=== PATIENT | female | born 1960 | race Hispanic/Latino ===

== ENCOUNTER 2020-09-04 16:07 | Inpatient (IN) | payer SELFPAY ==
[~2020-09-04] VITALS: Ht 152.4 cm; Wt 61.5 kg
[2020-09-04] MEDS ORDERED: REGADENOSON 0.4 MG/5 ML PF SYG IVP ONE (16:09)
[2020-09-04 16:24] LABS: BASOPHILS % (AUTO) 0.5 % (0.0-5.0); EOSINOPHILS % (AUTO) 0.2 % (0.0-8.0); LYMPHOCYTES % (AUTO) 11.3 % (21.0-51.0); MEAN CORPUSCULAR HEMOGLOBIN 28.5 pg (27.0-33.0); MEAN CORPUSCULAR HGB CONC 34.3 g/dL (32.0-36.0); MEAN CORPUSCULAR VOLUME 83.1 fL (79-99); MONOCYTES % (AUTO) 8.2 % (3.0-13.0); PLATELET COUNT (AUTO) 261 K/uL (130-400); RED BLOOD CELL COUNT(AUTO) 4.45 MIL/uL (4.00-5.50); RED CELL DISTRIBUTION WIDTH 12.3 % (11.0-15.5); WHITE BLOOD COUNT (AUTO) 11.8 K/uL (4.8-10.8)
[2020-09-04 16:37] LABS: APPEARANCE,URINE Clear (CLEAR); BILIRUBIN,URINE Negative (NEGATIVE); COLOR,URINE Yellow (YELLOW); GLUCOSE, URINE (UA) >=1000 mg/dL (NEGATIVE); KETONES,URINE Negative (NEGATIVE); LEUKOCYTE ESTERASE ,URINE Small (NEGATIVE); NITRATE,URINE Negative (NEGATIVE); OCCULT BLOOD,URINE Small (NEGATIVE); PH,URINE 5.5 (5.0-8.0); PROTEIN,URINE Negative (NEGATIVE); UROBILINOGEN,URINE 0.2 mg/dL (0.2-1.0)
[2020-09-04 16:46] LABS: BACTERIA,URINE Few /HPF (None Seen); MUCUS,URINE Few LPF (None Seen); SQUAMOUS EPITHELIAL CELL,UR Few /HPF (0-2)
[2020-09-04] MEDS ORDERED: ACETAMINOPHEN 325 MG TAB ONE ×2 (16:52→23:06)
[2020-09-04 16:53] LABS: ALBUMIN 2.6 g/dL (3.5-5.0); BILIRUBIN,TOTAL 0.7 mg/dL (0.2-1.0); CREATININE 1.2 mg/dL (0.5-1.5); POTASSIUM 3.4 mmol/L (3.5-5.1); TOTAL PROTEIN, SERUM 7.7 g/dL (6.0-8.3)
[2020-09-04 16:54] LABS: ABG BASE EXCESS 1.6 mmol/L (-2.0-3.0); ABG HCO3 25.7 mmol/L (21.0-28.0); ABG OXYGEN SATURATION 94.3 % (95.0-99.0); ABG PCO2 38 mmHg (32-45)
[2020-09-04] MEDS ORDERED: INSULIN HUMULIN R 100 UNIT/ML 3ML ONE (18:22)
[2020-09-04] MEDS ORDERED: CEFTRIAXONE SODIUM 1 GM ONE (18:27)
[2020-09-04] MEDS ORDERED: LIDOCAINE HCL-MPF 1% 2ML VIAL IV PRN (19:30)
[2020-09-04] MEDS ORDERED: ONDANSETRON HCL 4 MG/2 ML VIAL IV PRN (19:30)
[2020-09-04] MEDS ORDERED: LACTULOSE 20 GM/30 ML UDCUP PO PRN (19:30)
[2020-09-04] MEDS: SODIUM CHLORIDE 0.9% 1000ML 1,000 ML IV SCH (19:30)
[2020-09-04] MEDS ORDERED: POTASSIUM CHLORIDE 10% ELIXIR 20 MEQ/15 ML UDCUP PO PRN (19:30)
[2020-09-04] MEDS ORDERED: POTASSIUM CHLORIDE 20 MEQ ERTAB PO PRN (19:30)
[2020-09-04] MEDS ORDERED: POTASSIUM CHLORIDE 10MEQ/100ML 100 ML IV PRN (19:30)
[2020-09-04] MEDS ORDERED: ACETAMINOPHEN 325 MG TAB PO PRN (19:30)
[2020-09-04] MEDS ORDERED: HYDRALAZINE HCL 20 MG/ML VIAL IV PRN (19:30)
[2020-09-04] MEDS: CEFTRIAXONE SODIUM 1 GM IV SCH (19:30)
[2020-09-04 19:39] LABS: HEMOGLOBIN A1C 9.2 % (4.0-6.0)
[2020-09-04 19:45] LABS: CHOLESTEROL 173 mg/dL (<200); HDL CHOLESTEROL 30 mg/dL (35-85); LDL DIRECT 82 mg/dL (0-99); TRIGLYCERIDES 433 mg/dL (30-200)
[2020-09-04] MEDS ORDERED: INSULIN GLARGINE 100 UNITS/ML 10 ML VIAL SQ SCH (21:00)
[2020-09-04] MEDS ORDERED: ATORVASTATIN CALCIUM 20 MG TABLET PO SCH (21:00)
[2020-09-04] MEDS: INSULIN HUMULIN R 100 UNIT/ML 3ML SQ SCH (21:00)
[2020-09-04] MEDS: METOPROLOL TARTRATE 25 MG TAB PO SCH (21:00)
[2020-09-04 21:17] LABS: INR 0.84 (0.85-1.15); PARTIAL THROMBOPLASTIN TIME 24.8 SEC (26.3-35.5); PROTHROMBIN TIME 9.1 SEC (9.6-11.6)
[2020-09-05] MEDS ORDERED: IOHEXOL-350 75 ML VIAL IV ONE (04:51)
[2020-09-05] MEDS: SODIUM CHLORIDE 0.9% 1000ML 1,000 ML IV SCH ×2 (05:51→18:00)
[2020-09-05] MEDS: INSULIN HUMULIN R 100 UNIT/ML 3ML SQ SCH ×4 (07:30→19:55)
[2020-09-05] MEDS: FAMOTIDINE 20MG TAB 20 MG TAB PO SCH (09:00)
[2020-09-05] MEDS: ENOXAPARIN SODIUM 40 MG/0.4 ML SYRINGE SQ SCH (09:00)
[2020-09-05] MEDS ORDERED: ASPIRIN 325 MG TABLET PO SCH (09:00)
[2020-09-05] MEDS: METOPROLOL TARTRATE 25 MG TAB PO SCH ×2 (09:00→19:56)
[2020-09-05] MEDS ORDERED: ENOXAPARIN SODIUM 40 MG/0.4 ML SYRINGE SQ ONE (09:09)
[2020-09-05] MEDS ORDERED: FAMOTIDINE 20MG TAB 20 MG TAB ONE (09:09)
[2020-09-05] MEDS ORDERED: ASPIRIN 81MG TAB.CHEW ONE (09:09)
[2020-09-05] MEDS ORDERED: METOPROLOL TARTRATE 25 MG TAB ONE (09:10)
[2020-09-05] MEDS ORDERED: INSULIN HUMULIN R 100 UNIT/ML 3ML ONE ×2 (09:11→13:22)
[2020-09-05 10:46] LABS: BASOPHILS % (AUTO) 0.6 % (0.0-5.0); EOSINOPHILS % (AUTO) 0.5 % (0.0-8.0); HEMATOCRIT 35.1 % (36-48); LYMPHOCYTES % (AUTO) 18.6 % (21.0-51.0); MEAN CORPUSCULAR HEMOGLOBIN 28.7 pg (27.0-33.0); MEAN CORPUSCULAR HGB CONC 33.3 g/dL (32.0-36.0); MONOCYTES % (AUTO) 5.9 % (3.0-13.0); NEUTROPHILS % (AUTO) 69.8 % (40.0-77.0); PLATELET COUNT (AUTO) 285 K/uL (130-400); RED BLOOD CELL COUNT(AUTO) 4.08 MIL/uL (4.00-5.50); RED CELL DISTRIBUTION WIDTH 12.6 % (11.0-15.5); WHITE BLOOD COUNT (AUTO) 10.8 K/uL (4.8-10.8)
--- NOTE | 2020-09-05 11:30 | NUR ---
MET WITH PATIENT AT BEDSIDE IN ER FOR DC PLANNING PATIENT STATES INDEPENDENT, DRIVE, NO DME, NO PCP, UNINSURED, UNDOCUMENTED LIVES WITH SPOUSE SILVIO, WILL UPDATE FACE SHEET TO CORRECT SPOUSE NAME AND ADD DAUGHTER, WHO WILL PROVIDE TRANSPORT. STATES NO KNOWLEDGE OF LOW COST CLINICS IN AREA. PENDING COMMUNITY RESOURCE PKT, PENDING RX FOR GLUCOMETER/LANCETS /STRIPS Addendum: 09/06/20 at 0823 by ZAHIDA YODER RN CM Amended: Links added.
[2020-09-05 11:34] LABS: ALBUMIN 2.3 g/dL (3.5-5.0); BILIRUBIN,TOTAL 0.7 mg/dL (0.2-1.0); MAGNESIUM 2.3 mg/dL (1.80-2.40); POTASSIUM 3.7 mmol/L (3.5-5.1)
[2020-09-05] MEDS ORDERED: INSULIN GLARGINE 100 UNITS/ML 10 ML VIAL SQ SCH (12:30)
[2020-09-05] MEDS ORDERED: INSULIN HUMULIN R 100 UNIT/ML 3ML SQ SCH (17:00)
[2020-09-05 19:04] VITALS: BP 158/80
[2020-09-05] MEDS: CEFTRIAXONE SODIUM 1 GM IV SCH (19:56)
[2020-09-05] MEDS ORDERED: MORPHINE SULFATE 2 MG/ML 1ML SYG IVP PRN (20:00)
[2020-09-05 23:06] LABS: CREATINE KINASE, TOTAL 7 U/L (21-232); MYOGLOBIN 15 ng/mL (10-92); TROPONIN I < 0.04 ng/mL (0.00-0.06)
[2020-09-06] VITALS (9 sets, daily range): BP systolic 121–153; BP diastolic 45–83
[2020-09-06] MEDS: SODIUM CHLORIDE 0.9% 1000ML 1,000 ML IV SCH ×3 (02:30→14:55)
[2020-09-06] MEDS: INSULIN HUMULIN R 100 UNIT/ML 3ML SQ SCH ×8 (05:51→20:25)
[2020-09-06 05:58] LABS: HEMATOCRIT 31.8 % (36-48); MEAN CORPUSCULAR HEMOGLOBIN 28.6 pg (27.0-33.0); MEAN CORPUSCULAR VOLUME 84.1 fL (79-99); PLATELET COUNT (AUTO) 305 K/uL (130-400); RED BLOOD CELL COUNT(AUTO) 3.78 MIL/uL (4.00-5.50); RED CELL DISTRIBUTION WIDTH 12.5 % (11.0-15.5); WHITE BLOOD COUNT (AUTO) 12.2 K/uL (4.8-10.8)
[2020-09-06 06:05] LABS: CREATININE 0.9 mg/dL (0.5-1.5); POTASSIUM 3.3 mmol/L (3.5-5.1)
[2020-09-06] MEDS ORDERED: LIDOCAINE HCL-MPF 1% 2ML VIAL IV PRN (06:15)
[2020-09-06] MEDS ORDERED: POTASSIUM CHLORIDE 20 MEQ ERTAB PO PRN (06:15)
[2020-09-06] MEDS ORDERED: POTASSIUM CHLORIDE 10% ELIXIR 20 MEQ/15 ML UDCUP PO PRN (06:15)
[2020-09-06] MEDS ORDERED: POTASSIUM CHLORIDE 20MEQ/100ML 100 ML IV PRN (06:15)
[2020-09-06 06:20] LABS: BAND NEUTROPHILS % (MANUAL) 6 % (0-2); LYMPHOCYTES % (MANUAL) 25 % (22-44); MAN.DIFF COMMENT-IMPRESSION MANUAL DIFFERENTIAL; MONOCYTES % (MANUAL) 8 % (2-9); REACTIVE LYMPHOCYTES 1 % (0-0); SEGMENTED NEUTROPHILS % 60 % (40-70)
[2020-09-06 06:21] LABS: PLATELET MORPHOLOGY COMMENT ADEQUATE
--- NOTE | 2020-09-06 08:24 | NUR ---
EXPECTED DCP TO HOME CM TO FOLLOW PRN FOR DC NEEDS RE NEW DM DX Addendum: 09/06/20 at 0825 by ZAHIDA YODER RN CM Amended: Links added.
--- NOTE | 2020-09-06 08:25 | NUR ---
COMMUNITY RESOURCE PKT- GIVEN TO PT DISCUSSED 07/06- ADVISED PT OF FREE DIABETIC MANAGEMENT CLINIC @ [facility]
[2020-09-06] MEDS: METOPROLOL TARTRATE 25 MG TAB PO SCH ×2 (08:28→20:25)
[2020-09-06] MEDS: FAMOTIDINE 20MG TAB 20 MG TAB PO SCH (08:28)
[2020-09-06] MEDS: ASPIRIN 81MG TAB.CHEW PO SCH (08:28)
[2020-09-06] MEDS: ATORVASTATIN CALCIUM 40 MG TABLET PO SCH (08:28)
[2020-09-06] MEDS: ENOXAPARIN SODIUM 40 MG/0.4 ML SYRINGE SQ SCH (08:29)
[2020-09-06] MEDS: INSULIN GLARGINE 100 UNITS/ML 10 ML VIAL SQ SCH (08:36)
[2020-09-06] MEDS: ACETAMINOPHEN 325 MG TAB PO PRN ×2 (08:44→17:00)
--- NOTE | 2020-09-06 15:06 | NUR ---
TO [employer]. FOR THE RYAN SCAN. VIA WHEELCHAIR ,
--- NOTE | 2020-09-06 15:41 | NUR ---
RD NOTIFICATION Pt admitted due to chest pain and elevated BG levels. Pt was dx with T2 DM upon admission. Pt is currently NPO however, she was previously on a 75 GM CC diet and consuming 50-75%. Pt's BMI is 26.4. Pt stated to eating well prior to admission. She noted a 10 lb wt loss in the past 4 months. This shows a 6% wt change. No current evidence of malnutrition. LABS: A1C 9.2, ALB 2.3, BG 198, K 3.3 Last BM: 09/05/20 RD RECOMMENDATION: DM diet education. When medically appropriate to advance diet consider a [address] will continue to monitor. Addendum: 09/06/20 at [address] Amended: Links added.
--- NOTE | 2020-09-06 15:47 | NUR ---
RD NOTE Pt is newly diagnosed with T2DM. Pt has had no prior exposure to nutritional education of diabetes. Pt was given educational materials in Bulgarian and RD explain diet recommendations for DM. Pt was in mild pain, pt verbalized understanding. Contact dietary for any further nutritional concerns. Thank you Addendum: 09/06/20 at [address] Amended: Links added.
--- NOTE | 2020-09-06 16:00 | NUR ---
PT NOT IN THE ROOM , IN LESIX SCAN . UNABLE TO DO V/S FOR 1600 Addendum: 09/06/20 at 1851 by CORDELL MUNOZ RN RN Amended: Links added.
[2020-09-06] MEDS: REGADENOSON 0.4 MG/5 ML PF SYG IVP SCH ×2 (16:21→16:30)
--- NOTE | 2020-09-06 16:37 | NUR ---
PT BACK FROM SCAN . DIET ORDER .PENDING 2ND PART. OKAY TO HAVE DIET , PER STAFF , INFORMATION .
--- NOTE | 2020-09-06 18:20 | NUR ---
PT BACK FROM HER 2ND PART OF THE RYAN SCAN . DENIES ANY PAIN. SUPPER WAS GIVEN , AND CALL LIGHT IN REACH. Addendum: 09/06/20 at 1848 by CORDELL MUNOZ RN RN Amended: Links added.
[2020-09-06] MEDS: CEFTRIAXONE SODIUM 1 GM IV SCH (20:25)
[2020-09-07 03:48] VITALS: BP 124/59
[2020-09-07 06:23] LABS: BASOPHILS % (AUTO) 0.4 % (0.0-5.0); EOSINOPHILS % (AUTO) 1.1 % (0.0-8.0); HEMATOCRIT 31.7 % (36-48); LYMPHOCYTES % (AUTO) 14.7 % (21.0-51.0); MEAN CORPUSCULAR HEMOGLOBIN 28.5 pg (27.0-33.0); MEAN CORPUSCULAR HGB CONC 33.1 g/dL (32.0-36.0); MEAN CORPUSCULAR VOLUME 86.1 fL (79-99); MONOCYTES % (AUTO) 5.3 % (3.0-13.0); NEUTROPHILS % (AUTO) 73.6 % (40.0-77.0); PLATELET COUNT (AUTO) 333 K/uL (130-400); RED BLOOD CELL COUNT(AUTO) 3.68 MIL/uL (4.00-5.50); RED CELL DISTRIBUTION WIDTH 12.7 % (11.0-15.5); WHITE BLOOD COUNT (AUTO) 10.5 K/uL (4.8-10.8)
[2020-09-07] MEDS: INSULIN HUMULIN R 100 UNIT/ML 3ML SQ SCH ×6 (06:26→16:46)
[2020-09-07 07:00] VITALS: BP 161/76
[2020-09-07 07:10] LABS: CREATININE 0.8 mg/dL (0.5-1.5); MAGNESIUM 2.3 mg/dL (1.80-2.40); POTASSIUM 3.3 mmol/L (3.5-5.1)
[2020-09-07] MEDS ORDERED: POTASSIUM CHLORIDE 20 MEQ ERTAB PO SCH (08:45)
[2020-09-07] MEDS ORDERED: LISINOPRIL 10 MG TABLET PO SCH (09:00)
[2020-09-07] MEDS: ASPIRIN 81MG TAB.CHEW PO SCH (10:04)
[2020-09-07] MEDS: ATORVASTATIN CALCIUM 40 MG TABLET PO SCH (10:04)
[2020-09-07] MEDS: METOPROLOL TARTRATE 25 MG TAB PO SCH (10:04)
[2020-09-07] MEDS: FAMOTIDINE 20MG TAB 20 MG TAB PO SCH (10:04)
[2020-09-07] MEDS: ACETAMINOPHEN 325 MG TAB PO PRN ×2 (10:07→18:08)
[2020-09-07] MEDS: ENOXAPARIN SODIUM 40 MG/0.4 ML SYRINGE SQ SCH (10:08)
[2020-09-07 11:00] VITALS: BP 146/75
[2020-09-07] MEDS: INSULIN GLARGINE 100 UNITS/ML 10 ML VIAL SQ SCH (12:14)
--- NOTE | 2020-09-07 13:05 | NUR ---
CM NOTE/GOOD RX MET WITH PATIENT IN ROOM FOR RESOURCE PACKET AND GOOD RX COUPON. PT MADE AWARE THAT SHE WOULD BE DISCHARGED WTH RX FOR DIABETIC MEDICATION. INSTRUCTED ON GOOD RX AND MEDICATION RESOURCE PACKET, VERBALIZED UNDERSTANDING. DR. GILMORE MADE AWARE OF CONVERSATION I HAD WITH PATIENT WELL INFORMATION GIVEN TO PATIENT.
[2020-09-07 16:00] VITALS: BP 143/75
--- NOTE | 2020-09-07 17:26 | NUR ---
Patient d/c home using teach back technique re; the following; New meds, home meds, s/s to watch for such as for diabetes and UTI. When to call 911 or Primary doctor. Follow up appointments: Asegure de comprar tobias medicinas come la aspirina, lipitor, metoprolol, tartrate, lisinopril, metformin and actos. Tambien se injectara Insulina para el control de saba diabetes, Y siga las recomendaciones de saba doctor Marline para el control de diabetes. Jacob joshua con: Saba doctor de cabezera en 2-[address] Horan Endocronologo en 1 semana. Llamar al chucky [phone] para hacer saba joshua. Diabetes. Dr. Medina Cardiologo en 2 semanas. Para el control de ashley presion. Llamar al chucky [phone] para hacer saba joshua para el control de ashley presion. Ya se le educo come checarse la azucar y cuantas veces checarcela y los simptomas de baja azucar y de ashley. Y come injectarse. si se le baja la azucar menos de 70 llamar a saba medico para ajustes a saba insulina. continue saba antibiotico para la infeccion de la orina. terminar todo el atnbiotico completo para prevenir maryana bacteria con ashley resistencia a los antibioticos. si le da calentura o problemas orinando o ardor llamar a saba medico de cabezera puede significar que la infeccion en la orina a regresado. IV out, no bleeding, Tele pack removed by ROOM WORKER, [id number], denies any questions or concerns at discharge.
== END 2020-09-07 15:00 | disposition home or self-care (01) | DRG 313 ==
LOC: EDH 16:07 → EDHIP 16:08 → OBSVTOIN 16:08 → 4CH 09-05 16:16
PROVIDERS: ADMIT Internal Medicine; ATTEND Internal Medicine
DX: R07.89 Other chest pain (principal); E11.00 Type 2 diabetes mellitus with hyperosmolarity without nonketotic hyperglycemic-hyperosmolar coma (NKHHC); N39.0 Urinary tract infection, site not specified; E87.1 Hypo-osmolality and hyponatremia; E86.0 Dehydration; E78.5 Hyperlipidemia, unspecified; E87.6 Hypokalemia; I10 Essential (primary) hypertension; Z79.4 Long term (current) use of insulin; Z90.49 Acquired absence of other specified parts of digestive tract; Z20.828 Contact with and (suspected) exposure to other viral communicable diseases
CPT/HCPCS: 36415; 36600; 71045; 71275; 76700; 78452; 80048; 80053; 80061; 81001; 82010; 82435; 82550; 82803; 82947; 82948; 83036; 83605; 83735; 83874; 84132; 84145; 84295; 84443; 84484; 85018; 85025; 85378; 85610; 85730; 87040; 87077; 87088; 87186; 87426; 93005; 93017; 93306; 93356; 96374; A9500; G0378; J0696; J1650; J1815; J2405; J2785; Q9967; U0003

== ENCOUNTER 2021-07-08 21:52 | Emergency (ER) | payer OTHER ==
[~2021-07-08] VITALS: Ht 154.9 cm; Wt 66.2 kg
[2021-07-08 21:54] VITALS: BP 140/77
== END 2021-07-09 02:26 | disposition left against medical advice (07) ==
LOC: EDH 21:52
DX: R10.9 Unspecified abdominal pain (principal); Z53.21 Procedure and treatment not carried out due to patient leaving prior to being seen by health care provider